=== PATIENT | female | born 1930 | race Hispanic/Latino ===

== ENCOUNTER 2017-11-23 20:40 | Inpatient (IN) | payer OTHER ==
[~2017-11-23] VITALS: Ht 152.4 cm; Wt 58.5 kg
--- NOTE | 2017-11-23 21:17 | ED GI/GU/ABDOMINAL COMPLAINT ---
History of Present Illness General Chief Complaint: General Adult Stated Complaint: " LT SIDE ABD PAIN AND CHEST PAIN, HX CANCER" Source: patient, family Exam Limitations: no limitations Vital Signs & Intake/Output Vital Signs & Intake/Output Vital Signs Date Time Temp Pulse Resp B/P B/P Pulse O2 O2 Flow FiO2 Mean Ox Delivery Rate 11/24 148 98.6 82 17 133/64 97 Room Air 11/24 0149 98.6 82 17 133/64 97 11/24 0101 98.9 86 16 137/62 97 Room Air 11/23 2301 98.5 87 16 172/71 98 Room Air 11/23 2112 Room Air 11/23 2110 99.0 97 18 172/74 100 Room Air ED Intake and Output 11/24 0000 11/23 1200 Intake Total 0 Output Total Balance 0 Intake, Oral 0 Patient 120 lb Weight Weight Reported by Patient Measurement Method Allergies Coded Allergies: No Known Allergies (11/23/17) Reconcile Medications Letrozole (Femara) 2.5 MG TABLET 1 TAB PO DAILY CHEMO (Reported) Ondansetron HCl 8 MG TABLET 2 TAB PO DAILY PRN N/V (Reported) Ribociclib Succinate/Letrozole (Kisqali Femara 600 MG Co-Pack) 600 MG/DAY (200 MG X 3)-2.5 MG TABLET 3 TAB PO DAILY CHEMO (Reported) Triage Note: pt to ed with family for L sided abd pain and constipation. 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 famiyl reports pt vomited 3 times within past 5 hours. 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 bowel sounds wnl, bd distended/soft. pt awake/alert, primarily english speaking. Triage Nurses Notes Reviewed? yes ? N Is pt currently ? No Onset: Gradual Duration: hour(s): Timing: multiple episodes today Quality/Severity: severe, stabbing Location: left lower quadrant HPI: 87YO female with hx of breast CA mets to lungs and liver on chemo presents to ED complaining of LLQ abdominal pain beginning this morning. Abdominal pain is intermittent, sharp, stabbing, 5/10 currently however 7/10 earlier today. Patient had three episodes of vomiting today, she is taking zofran without relief. Patient also complaining of constipation. LBM was three days ago. Family reports that the patient has had pain in the same location several times relating to her cancer diagnosis. They encouraged the patient to be seen today because the pain seemed more severe. The patient saw her oncologist at [place] on 11/06, family state that the patient's pain has been ongoing however she has not brought it up with her specialist. (Ioana Lopez) Past History Travel History Traveled to [place] past 21 day No Medical History Any Pertinent Medical History? see below for history Cancer(s): breast cancer, mets to lungs/liver Surgical History Surgical History: non-contributory Psychosocial History What is your primary language Georgian Tobacco Use: Never used Family History Hx Contributory? No (Ioana Lopez) Review of Systems Review of Systems Constitutional: Reports: no symptoms. EENTM: Reports: no symptoms. Respiratory: Reports: no symptoms. Cardiovascular: Reports: see HPI. GI: Reports: see HPI. Genitourinary: Reports: no symptoms. Musculoskeletal: Reports: no symptoms. Skin: Reports: no symptoms. Neurological/Psychological: Reports: no symptoms. Hematologic/Endocrine: Reports: no symptoms. Immunologic/Allergic: Reports: no symptoms. All Other Systems: Reviewed and Negative (Ioana Lopez) Physical Exam Physical Exam General Appearance: well developed/nourished, no apparent distress, alert, awake Head: atraumatic, normal appearance Eyes: Bilateral: normal appearance. Ears, Nose, Throat, Mouth: hearing grossly normal Neck: normal inspection, supple, full range of motion Respiratory: normal breath sounds, no respiratory distress, lungs clear Cardiovascular: regular rate/rhythm Gastrointestinal: normal bowel sounds, soft, LLQ tenderness without gaurding Back: normal inspection, normal range of motion Extremities: normal range of motion Neurologic/Psych: awake, alert, oriented x 3 Skin: intact, normal color, warm/dry Core Measures ACS in differential dx? Yes Sepsis Present: No Sepsis Focused Exam Completed? No (Ioana Lopez) Progress Differential Diagnosis: bowel obstruction, colon cancer, diverticulitis, gastritis, hernia, UTI/pyelo, electrolyte abnormality Plan of Care: Orders Procedure Date/time Status Regular Diet 11/25 B Active Nothing by Mouth 11/24 B Active HEPATIC FUNCTION PANEL 11/24 599 Active CBC WITHOUT DIFFERENTIAL 11/24 599 Active BASIC ELECTROLYTES PLUS BUN&CR 11/24 599 Active Weight 11/24 0205 Active Vital Signs 11/24 0205 Active Teach/Educate 11/24 204 Active Pain Treatment and Response 11/24 204 Active Nutritional Intake, Monitor 11/24 020 Active Isolation 11/24 0205 Active Intake & Output 11/24 0205 Active Patient Care Conference 11/24 0205 Active Activity/Ambulation 11/24 0205 Active Pathway - chart 11/24 0020 Active Pathway - chart 11/24 0001 Active House Staff 11/24 0001 Active Patient Data 11/24 0001 Active Code Status 11/24 0001 Active VTE Mechanical Prophylaxis 11/24 UNK Active Vital Signs 11/24 UNK Active Intake & Output 11/24 UNK Active Activity/Ambulation 11/24 UNK Active NUTRITIONAL CONSULT 11/24 UNK Active Patient Data 11/23 2356 Active Lab Add-on Test 11/23 2355 Active Saline Lock 11/23 2353 Active Misc Message 11/23 2353 Active ED Holding Orders 11/23 2353 Active Admit to inpatient 11/23 2353 Active Vital Signs 11/23 2353 Complete Code Status 11/23 2353 Complete TROPONIN LEVEL 11/23 2352 Complete EKG 11/23 2352 Active URINE OSMOLALITY 11/23 2138 Complete URINE LYTES, SPOT 11/23 2138 Complete SERUM OSMOLALITY 11/23 2122 Complete URINALYSIS 11/23 2104 Complete TROPONIN LEVEL 11/23 2104 Complete PARTIAL THROMBOPLASTIN TIME 11/23 2104 Complete PROTHROMBIN TIME 11/23 210 Complete COMPREHENSIVE METABOLIC PANEL 11/23 210 Complete CBC WITHOUT DIFFERENTIAL 11/23 210 Complete EKG 11/23 2043 Active Current Medications Sig/Castro Start time Last Medication Dose Stop Time Status Admin Letrozole 2.5 MG DAILY 11/24 899 AC (Femara 2.5MG) Polyethylene Glycol 17 GM DAILY 11/24 09 AC (Miralax) Heparin Sodium 5,000 UNIT Q8 11/24 06 AC (Porcine) Ondansetron HCl 4 MG Q6P PRN 11/24 0130 AC (Zofran) Acetaminophen 650 MG Q6P PRN 11/24 0030 AC (Tylenol) Acetaminophen 1,000 MG Q6P PRN 11/24 0030 AC (Ofirmev) Senna/Docusate Sodium 2 TAB DAILY PRN 11/24 0030 AC (Senokot S) Laboratory Tests 11/24/17 0025: Troponin I < 0.01 11/23/172137: Urine Color YEL, Urine Clarity CLEAR, Urine pH 6.5, Ur Specific [place] <= 1.005 , Urine Protein NEG, Urine Ketones NEG, Urine Nitrite NEG, Urine Bilirubin NEG, Urine Urobilinogen 0.2, Ur Leukocyte Esterase SMALL H, Ur Microscopic SEDIMENT EXAMINED, Urine RBC RARE, Urine WBC RARE, Ur Epithelial Cells RARE, Urine Bacteria RARE H, Urine Hemoglobin TRACE-INTACT, Urine Glucose NEG 11/23/172137: Urine Osmolality 130 L, Ur Random Creatinine 14.1, Ur Random Sodium 26 L, Ur Random Potassium 8.8, Fraction Sodium Excret 1.4 H 11/23/172121: Anion Gap 11, Estimated GFR 53 L, BUN/Creatinine Ratio 20.0, Glucose 177 H, Serum Osmolality 292, Calcium 8.8, Total Bilirubin 0.7, AST 85 H, ALT 65 H, Alkaline Phosphatase 372 H, Troponin I < 0.01, Total Protein 6.8, Albumin 3.7, Globulin 3.1, Albumin/Globulin Ratio 1.2, PT 10.7, INR 0.98, APTT 29, CBC w Diff NO MAN DIFF REQ, RBC 2.90 L, MCV 92.8, MCH 31.3 H, MCHC 33.8, RDW 17.9 H, MPV 10.2, Gran % 82.6 H, Lymphocytes % 13.8 L, Monocytes % 2.5, Eosinophils % 0.9, Basophils % 0.2, Absolute Granulocytes 3.7, Absolute Lymphocytes 0.6 L, Absolute Monocytes 0.1, Absolute Eosinophils 0, Absolute Basophils 0 Nodules detected on CXR however patient currently has metastatic lung CA, likely correlated. Labs show hyponatremia. Will obtain repeat troponin, EKG and admit to general medicine given hyponatremia in setting of weakness and metastatic CA. Dr. Ibanez present to see and evaluate the patient and he agrees with the plan of care. Diagnostic Imaging: Viewed by Me: Radiology Read. Discussed w/RAD: Radiology Read. Radiology Impression: PATIENT: SOLITARIO CASTRO PRESENT AGE : 87 PATIENT ACCOUNT NO: [id number] : 31 LOCATION: [facility] ORDERING PHYSICIAN: Ioana AUSTIN SERVICE DATE: 11/23/17 EXAM TYPE: CAT - CT ABD & PELVIS W IV CONTRAST EXAMINATION: CT ABDOMEN AND PELVIS WITH CONTRAST CLINICAL INFORMATION: History of metastatic cancer to the liver. Left lower quadrant abdominal pain. COMPARISON: None TECHNIQUE: Multidetector volumetric imaging was performed of the abdomen and pelvis following IV administration of 95 mL of Optiray 320 intravenous contrast. Sagittal and coronal reformatted images were obtained on the technologist's workstation. DLP: 264.6 mGy-cm FINDINGS: LUNG BASES: There is a 5 mm nodular opacity above the left diaphragm at the left lung base. There are several 2 to 3 mm faint nodular opacities in the right lower lobe seen on the first image. CT of chest would be helpful for further assessment. There is no infiltrate or pleural effusion. There is a tiny calcified granuloma at the right costophrenic angle axial image 8 (4). The posterior right costophrenic angle axial image 99 (3). LIVER, GALLBLADDER, AND BILIARY TREE: There are ill-defined multiple hypodense masses throughout the liver consistent with the history of metastatic disease. There is no intrahepatic bile duct dilatation. The gallbladder is unremarkable with no evidence of radiopaque gallstones, gallbladder wall thickening, or obvious pericholecystic inflammatory changes. PANCREAS: There is fatty atrophy of the pancreas. No inflammation or pancreatic mass. There is no pancreatic duct dilatation. SPLEEN: Unremarkable. ADRENAL GLANDS: Unremarkable. KIDNEYS AND URETERS: The kidneys are normal in size, shape, and attenuation. No hydronephrosis, hydroureter, or calculi seen. No perinephric stranding. BLADDER: Unremarkable. GASTROINTESTINAL TRACT: There is diffuse diverticula throughout the colon. There are numerous diverticula of the sigmoid colon. There is no acute change of the bowel. There is no diverticulitis. No bowel wall thickening or edema. No inflammation of the pericolonic fat. Moderate amount of stool throughout the colon. The appendix is normal. The small bowel loops are normal. ABDOMINAL WALL: No significant hernia is appreciated. Calcified injection granulomas in the subcutaneous fat of the left. LYMPH NODES: Normal. VASCULAR: Unremarkable. PELVIC VISCERA: Unremarkable. OSSEOUS STRUCTURES: Multilevel degenerative spondylosis spine with disc height narrowing and endplate spurring of the vertebrae. IMPRESSION: 1. Marked diverticulosis of colon but no diverticulitis. No acute change of the bowel. 2. Multiple hypodense masses of liver consistent with metastatic disease. 3. Several small nodules in the lower lobes of lungs. A CT chest would be helpful for further assessment. DICTATED BY: Melchor Flannery MD DATE/TIME DICTATED:11/23/172306 DRILLER MACHINE:SARKIS DATE/TIME TRANSCRIBED:11/23/172306 CONFIDENTIAL, DO NOT COPY WITHOUT APPROPRIATE AUTHORIZATION. <Electronically signed in Other Vendor System> SIGNED BY: Melchor Flannery MD 11/23/172319 CXR Impression: PATIENT: SOLITARIO CASTRO PRESENT AGE: 87 PATIENT ACCOUNT NO: [id number] : 31 LOCATION: [facility] ORDERING PHYSICIAN: Ioana AUSTIN SERVICE DATE: 11/23/17 EXAM TYPE: RAD - XRY-CHEST XRAY, TWO VIEWS EXAMINATION: XR CHEST CLINICAL INFORMATION: Chest pain COMPARISON: None TECHNIQUE: 2 views of the chest were obtained. FINDINGS: There is a vague opacity in the left midlung measuring about 2 cm projecting over the posterior left fifth rib suspicious for a lesion. There is an approximate 5 mm subtle nodular opacity over the left mid lower lung over the anterior left fifth rib. CT of chest with contrast would be suggested for further assessment. There is mild coarse increased interstitial lung markings which may be acute or chronic but there is no significant central pulmonary vascular congestion. There is no pleural effusion. The heart size is normal. The cardiac and the mediastinal contours are normal. There is multilevel degenerative spondylosis of dorsal spine. There are surgical clips in the right axilla. IMPRESSION: 1. No acute abnormality of chest. 2. 2 vague nodular opacities in the left lung. CT of chest with contrast recommended for follow-up. 3. Mild coarse increased interstitial lung markings which could be acute, interstitial edema versus chronic interstitial changes of lung. Short-term follow-up chest x-ray will be helpful. This will also be further assessed on the CT of the chest. DICTATED BY: Melchor Flannery MD DATE/TIME DICTATED:11/23/172301 DRILLER MACHINE:SARKIS DATE/TIME TRANSCRIBED:11/23/172301 CONFIDENTIAL, DO NOT COPY WITHOUT APPROPRIATE AUTHORIZATION. <Electronically signed in Other Vendor System> SIGNED BY: Melchor Flannery MD 11/23/17 231 Initial ED EKG: sinus rhythm @97bpm, nonspecific ST changes (Merly AUSTIN,Ioana Blandon) Departure Departure Disposition: STILL A PATIENT Condition: Stable Clinical Impression Primary Impression: Hyponatremia Secondary Impressions: Abdominal pain Qualifiers: Abdominal location: left lower quadrant Qualified Code: R10.32 - Left lower quadrant pain Chest pain Qualifiers: Chest pain type: unspecified Qualified Code: R07.9 - Chest pain, unspecified Referrals: Papito Kaye APRN (PCP/Family) Departure Forms: Customer Survey General Discharge Information Admission Note Spoke With: Denis Kaye MD Documentation of Exam: Documentation of any treatments & extenuating circumstances including Concerns Regarding Discharge (functional status, medication knowledge or non-compliance, living conditions, etc.) that warrant an admission rather than observation: [ Hyponatremia with associated weakness requiring electrolyte replacement, repeat labs, IV pain control for abdominal pain, premature discharge medically unsafe] (Merly AUSTIN,Ioana Blandon) PA/JAVA GROOVY DEVELOPER Co-Sign Statement Statement: ED Attending supervision documentation- [x] I saw and evaluated the patient. I have also reviewed all the pertinent lab results and diagnostic results. I agree with the findings and the plan of care as documented in the PA's/JAVA GROOVY DEVELOPER's documentation. [] I have reviewed the ED Record and agree with the PA's/JAVA GROOVY DEVELOPER's documentation. [] Additions or exceptions (if any) to the PAs/JAVA GROOVY DEVELOPER's note and plan are summarized below: [] (Shamar DREW,Raul Plasencia)
[2017-11-23 21:36] LABS: ABSOLUTE BASOPHIL COUNT 0 /CUMM (0.0-0.2); ABSOLUTE EOSINOPHIL COUNT 0 /CUMM (0.0-0.7); ABSOLUTE GRANULOCYTE CT 3.7 /CUMM (1.4-6.5); ABSOLUTE LYMPH COUNT 0.6 /CUMM (1.2-3.4); ABSOLUTE MONOCYTE COUNT 0.1 /CUMM (0.10-0.60); BASOPHIL % 0.2 % (0.0-2.0); EOSINOPHIL % 0.9 % (0-5); GRANULOCYTE % 82.6 % (42.2-75.2); HEMATOCRIT 26.9 % (37-47); MEAN CORPUSCULAR HGB 31.3 PG (27.0-31.0); MEAN CORPUSCULAR HGB CONC 33.8 G/DL (33.0-37.0); MEAN CORPUSCULAR VOLUME 92.8 FL (81.0-99.0); MEAN PLATELET VOLUME 10.2 FL (7.4-10.4); PLATELET COUNT 246 /CUMM (130-400); RBC DISTRIBUTION WIDTH 17.9 % (11.5-14.5); WHITE BLOOD CELL COUNT 4.4 /CUMM (4.8-10.8)
[2017-11-23] MEDS ORDERED: KISQALI FEMARA1 EAC2 PO (21:39)
[2017-11-23] MEDS ORDERED: ONDANSETRON HCL8 MG PO (21:40)
[2017-11-23] MEDS ORDERED: FEMARA2.5 M1 PO (21:41)
[2017-11-23 21:47] LABS: PT 10.7 SEC (9.4-12.5); PTT 29 SEC (25-37)
--- NOTE | 2017-11-23 23:10 | RADIOLOGY REPORT ---
EXAMINATION: XR CHEST CLINICAL INFORMATION: Chest pain COMPARISON: None TECHNIQUE: 2 views of the chest were obtained. FINDINGS: There is a vague opacity in the left midlung measuring about 2 cm projecting over the posterior left fifth rib suspicious for a lesion. There is an approximate 5 mm subtle nodular opacity over the left mid lower lung over the anterior left fifth rib. CT of chest with contrast would be suggested for further assessment. There is mild coarse increased interstitial lung markings which may be acute or chronic but there is no significant central pulmonary vascular congestion. There is no pleural effusion. The heart size is normal. The cardiac and the mediastinal contours are normal. There is multilevel degenerative spondylosis of dorsal spine. There are surgical clips in the right axilla. IMPRESSION: 1. No acute abnormality of chest. 2. 2 vague nodular opacities in the left lung. CT of chest with contrast recommended for follow-up. 3. Mild coarse increased interstitial lung markings which could be acute, interstitial edema versus chronic interstitial changes of lung. Short-term follow-up chest x-ray will be helpful. This will also be further assessed on the CT of the chest.
--- NOTE | 2017-11-23 23:20 | CT SCAN REPORT ---
EXAMINATION: CT ABDOMEN AND PELVIS WITH CONTRAST CLINICAL INFORMATION: History of metastatic cancer to the liver. Left lower quadrant abdominal pain. COMPARISON: None TECHNIQUE: Multidetector volumetric imaging was performed of the abdomen and pelvis following IV administration of 95 mL of Optiray 320 intravenous contrast. Sagittal and coronal reformatted images were obtained on the technologist's workstation. DLP: 264.6 mGy-cm FINDINGS: LUNG BASES: There is a 5 mm nodular opacity above the left diaphragm at the left lung base. There are several 2 to 3 mm faint nodular opacities in the right lower lobe seen on the first image. CT of chest would be helpful for further assessment. There is no infiltrate or pleural effusion. There is a tiny calcified granuloma at the right costophrenic angle axial image 8 (4). The posterior right costophrenic angle axial image 99 (3). LIVER, GALLBLADDER, AND BILIARY TREE: There are ill-defined multiple hypodense masses throughout the liver consistent with the history of metastatic disease. There is no intrahepatic bile duct dilatation. The gallbladder is unremarkable with no evidence of radiopaque gallstones, gallbladder wall thickening, or obvious pericholecystic inflammatory changes. PANCREAS: There is fatty atrophy of the pancreas. No inflammation or pancreatic mass. There is no pancreatic duct dilatation. SPLEEN: Unremarkable. ADRENAL GLANDS: Unremarkable. KIDNEYS AND URETERS: The kidneys are normal in size, shape, and attenuation. No hydronephrosis, hydroureter, or calculi seen. No perinephric stranding. BLADDER: Unremarkable. GASTROINTESTINAL TRACT: There is diffuse diverticula throughout the colon. There are numerous diverticula of the sigmoid colon. There is no acute change of the bowel. There is no diverticulitis. No bowel wall thickening or edema. No inflammation of the pericolonic fat. Moderate amount of stool throughout the colon. The appendix is normal. The small bowel loops are normal. ABDOMINAL WALL: No significant hernia is appreciated. Calcified injection granulomas in the subcutaneous fat of the left. LYMPH NODES: Normal. VASCULAR: Unremarkable. PELVIC VISCERA: Unremarkable. OSSEOUS STRUCTURES: Multilevel degenerative spondylosis spine with disc height narrowing and endplate spurring of the vertebrae. IMPRESSION: 1. Marked diverticulosis of colon but no diverticulitis. No acute change of the bowel. 2. Multiple hypodense masses of liver consistent with metastatic disease. 3. Several small nodules in the lower lobes of lungs. A CT chest would be helpful for further assessment.
--- NOTE | 2017-11-23 23:59 | History & Physical ---
Jennifer DREW,Justine 11/23/17 0638: General Information and HPI MD Statement: I have seen and personally examined SOLITARIO CASTRO and documented this H&P. The patient is a 87 year old F who presented with a patient stated chief complaint of []. 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 She was recently started 2 weeks ago on Pablociclib 600mg and letrozole 2.5mg after which she started experiencing increased fatigue, tiredness, nausea. Her oral intake decreased ( including hydration). She started experiencing abdominal pain along with several episodes of nausea today despite on MiraLAX without any relief. She has subsequent about the ER for further evaluation. At baseline - she is very active, independent and takes care of her self, cooks. No other past medical history. Allergies/Medications Allergies: Coded Allergies: No Known Allergies (11/23/17) Compliance With Home Meds: GOOD Past History Travel History Traveled to [place] past 21 day No Medical History Cancer(s): breast cancer, mets to lungs/liver Surgical History Surgical History: non-contributory Past Family/Social History Family History Relations & Conditions if any Relation not specified for: *No pertinent family history Psychosocial History Where do you live? Home Who Do You Live With? child Services at Home: None Primary Language: Croatian ETOH Use: denies use Illicit Drug Use: denies illicit drug use Functional Ability ADLs Independent: dressing, eating, toileting, bathing. Ambulation: independent IADLs Needs Assist: shopping, housework, finances, food prep, telephone, transportation, medication admin. Review of Systems Review of Systems Constitutional: Reports: see HPI. Exam & Diagnostic Data Last 24 Hrs of Vital Signs/I&O Vital Signs Date Time Temp Pulse Resp B/P B/P Pulse O2 O2 Flow FiO2 Mean Ox Delivery Rate 11/23 2301 98.5 87 16 172/71 98 Room Air 11/24 2111 Room Air 11/23 2110 99.0 97 18 172/74 100 Room Air Physical Exam General Appearance Alert, Oriented X3, Cooperative Skin No Rashes, No Breakdown, Hyperpigmentation right leg Skin Temp/Moisture Exam: Warm/Dry HEENT Atraumatic, PERRLA, EOMI Neck Supple, No JVD Cardiovascular Regular Rate, Normal S1, Normal S2, No Murmurs Lungs Clear to Auscultation, Normal Air Movement Abdomen Normal Bowel Sounds, Soft, No Tenderness, tenderness in the left upper quadrant Neurological Normal Speech, Strength at 5/5 X4 Ext, Normal Tone Extremities No Clubbing, No Cyanosis, 2+ pitting edema Vascular Normal Pulses Last 24 Hrs of Labs/Anibal: Laboratory Tests 11/24/17 0025: Troponin I Pending 11/23/172137: Urine Color YEL, Urine Clarity CLEAR, Urine pH 6.5, Ur Specific Wayne <= 1.005 , Urine Protein NEG, Urine Ketones NEG, Urine Nitrite NEG, Urine Bilirubin NEG, Urine Urobilinogen 0.2, Ur Leukocyte Esterase SMALL H, Ur Microscopic SEDIMENT EXAMINED, Urine RBC RARE, Urine WBC RARE, Ur Epithelial Cells RARE, Urine Bacteria RARE H, Urine Hemoglobin TRACE-INTACT, Urine Glucose NEG 11/23/172137: Urine Osmolality Pending, Ur Random Creatinine 14.1, Ur Random Sodium 26 L, Ur Random Potassium 8.8, Fraction Sodium Excret 1.4 H 11/23/172121: Anion Gap 11, Estimated GFR 53 L, BUN/Creatinine Ratio 20.0, Glucose 177 H, Serum Osmolality Pending, Calcium 8.8, Total Bilirubin 0.7, AST 85 H, ALT 65 H , Alkaline Phosphatase 372 H, Troponin I < 0.01, Total Protein 6.8, Albumin 3.7 , Globulin 3.1, Albumin/Globulin Ratio 1.2, PT 10.7, INR 0.98, APTT 29, CBC w Diff NO MAN DIFF REQ, RBC 2.90 L, MCV 92.8, MCH 31.3 H, MCHC 33.8, RDW 17.9 H , MPV 10.2, Gran % 82.6 H, Lymphocytes % 13.8 L, Monocytes % 2.5, Eosinophils % 0.9, Basophils % 0.2, Absolute Granulocytes 3.7, Absolute Lymphocytes 0.6 L, Absolute Monocytes 0.1, Absolute Eosinophils 0, Absolute Basophils 0 Assessment/Plan Assessment: Patient is 87-year-old female with metastatic breast cancer recently started on Pablociclib/letrozole 2 weeks prior to admission presented to [place] with left sided abdominal pain, nausea, vomiting. Patients symptoms started after starting the new medication, declines any fever/abx intate/diarrhea. VS at admission were stable. Labs did show white count 4.4, H&H 9.1/26.9, platelet count 246. Chemistry panel sodium 128, BUN 20, AST/ALT 85/65, ALP 372, troponin less than 0.01. Urinalysis did show small leukocyte esterase and rare bacteria. Serum osmole 292, urine osmolarity 130. Urine random sodium 26. Differential Possible chemotherapy related adverse effect. Ruled out colitis with CT abdomen. No diarrhea/fevers. Granulocytosis present, I am not worried about neutropenia. We will provide supportive care. Hyponatremia - likely secondary to decreased intake rather than SIADH. Plan Admit to general medicine floor Left sided abdominal pain - likely secondary to constipation * CT abdomen did show mild stool throughtout the colon * rule out C.diff * Aggressive bowel regimen with miralax, Senna S, dulcolax suppository * Consider enema tomorrow if the above didnot relief her constipation * Antiemtics - Zofran as needed * Check EKG for QTc * serial abdominal exams Hyponatremia Na 128, Serum osm - 292 , urine osm - 130, urine Na 26 * Atypical SIADH, if >100mOsm is taken as working ADH. * Na improving without any intervention * Consider fluid restriction and watch for improvement. Metastatic breast cancer Hold pablociclib * contineu letrazole if able to tolerate BMI - 20 * Nutritional consult DVT prophylaxis SC heparin Code status Full code As Ranked By This Provider Problem List: 1. Abdominal pain Qualifiers Abdominal location: left lower quadrant Qualified Code: R10.32 - Left lower quadrant pain 2. Hyponatremia Core Measures/Misc (11/26) Acute Coronary Syndrome ACS Diagnosis: No Congestive Heart Failure Congestive Heart Failure Diagnosis No Cerebrovascular Accident CVA/TIA Diagnosis: No VTE (View Protocol) VTE Risk Factors Acute Medical Illness No Mechanical VTE Prophylaxis d/t N/A MechProphylax Ordered No VTE Pharm Prophylaxis d/t NA PharmProphylax ordered Sepsis (View protocol) Sepsis Present: No If YES complete Sepsis Event Note If YES complete Sepsis Event Note Resident Review Statement Resident Statement: examined this patient, discussed with media intern, agreed with media intern, discussed with family, reviewed EMR data (avail), discussed with nursing , discussed with case mgmt, reviewed images, amended to note Other Findings: as above Denis Kaye MD 11/24/17 0449: General Information and HPI Statement: I have seen and personally examined SOLITARIO CASTRO and documented this H&P. The patient is a 87 year old F who presented with a patient stated chief complaint of []. Source of Information: family Allergies/Medications Home Med list Letrozole (Femara) 2.5 MG TABLET 1 TAB PO DAILY CHEMO (Reported) Ondansetron HCl 8 MG TABLET 2 TAB PO DAILY PRN N/V (Reported) Ribociclib Succinate/Letrozole (Kisqali Femara 600 MG Co-Pack) 600 MG/DAY (200 MG X 3)-2.5 MG TABLET 3 TAB PO DAILY CHEMO (Reported) Past History Medical History Cancer(s): breast cancer Past Family/Social History Psychosocial History Where do you live? Home Who Do You Live With? child Primary Language: Croatian ETOH Use: denies use Review of Systems Review of Systems Constitutional: Reports: see HPI. Exam & Diagnostic Data Last 24 Hrs of Vital Signs/I&O Vital Signs Date Time Temp Pulse Resp B/P B/P Pulse O2 O2 Flow FiO2 Mean Ox Delivery Rate 11/24 148 98.6 82 17 133/64 97 Room Air 11/24 0149 98.6 82 17 133/64 97 11/24 0101 98.9 86 16 137/62 97 Room Air 11/23 2301 98.5 87 16 172/71 98 Room Air 11/23 2112 Room Air 11/23 211 99.0 97 18 172/74 100 Room Air Intake & Output 11/24 0800 11/24 0000 11/23 1600 Intake Total 0 Output Total Balance 0 Intake, Oral 0 Patient 129 lb 120 lb Weight Weight Bed scale Reported by Patient Measurement Method Physical Exam General Appearance Alert, Oriented X3, Cooperative Skin No Rashes, No Breakdown, Hyperpigmentation right leg Skin Temp/Moisture Exam: Warm/Dry Sepsis Skin Exam (color): Normal for Ethnicity HEENT Atraumatic, PERRLA, EOMI Neck Supple, No JVD Cardiovascular Regular Rate, Normal S1, Normal S2, No Murmurs Lungs Clear to Auscultation, Normal Air Movement Abdomen Normal Bowel Sounds, Soft, No Tenderness, tenderness in the left upper quadrant Extremities No Clubbing, No Cyanosis, 2+ pitting edema Vascular Normal Pulses Last 24 Hrs of Labs/Anibal: Laboratory Tests 11/24/17 0025: Troponin I < 0.01, TSH Pending, Free T4 Pending 11/23/172137: Urine Color YEL, Urine Clarity CLEAR, Urine pH 6.5, Ur Specific Wayne <= 1.005 , Urine Protein NEG, Urine Ketones NEG, Urine Nitrite NEG, Urine Bilirubin NEG, Urine Urobilinogen 0.2, Ur Leukocyte Esterase SMALL H, Ur Microscopic SEDIMENT EXAMINED, Urine RBC RARE, Urine WBC RARE, Ur Epithelial Cells RARE, Urine Bacteria RARE H, Urine Hemoglobin TRACE-INTACT, Urine Glucose NEG 11/23/172137: Urine Osmolality 130 L, Ur Random Creatinine 14.1, Ur Random Sodium 26 L, Ur Random Potassium 8.8, Fraction Sodium Excret 1.4 H 11/23/172121: Anion Gap 11, Estimated GFR 53 L, BUN/Creatinine Ratio 20.0, Glucose 177 H, Serum Osmolality 292, Calcium 8.8, Total Bilirubin 0.7, AST 85 H, ALT 65 H, Alkaline Phosphatase 372 H, Troponin I < 0.01, Total Protein 6.8, Albumin 3.7, Globulin 3.1, Albumin/Globulin Ratio 1.2, PT 10.7, INR 0.98, APTT 29, CBC w Diff NO MAN DIFF REQ, RBC 2.90 L, MCV 92.8, MCH 31.3 H, MCHC 33.8, RDW 17.9 H, MPV 10.2, Gran % 82.6 H, Lymphocytes % 13.8 L, Monocytes % 2.5, Eosinophils % 0.9, Basophils % 0.2, Absolute Granulocytes 3.7, Absolute Lymphocytes 0.6 L, Absolute Monocytes 0.1, Absolute Eosinophils 0, Absolute Basophils 0 Core Measures/Misc (11/26) Sepsis (View protocol) If YES complete Sepsis Event Note If YES complete Sepsis Event Note Attending MD Review Statement Attending Statement Attending MD Statement: examined this patient, discuss w/resident/PA/SPECIALTY THERAPIST, agreed w/resident/PA/SPECIALTY THERAPIST, discussed with case mgmt Attending Assessment/Plan: This patient is an 87-year-old white female with a 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 Two weeks ago she was started on Pablociclib 600mg and letrozole 2.5mg after which she started experiencing increased fatigue, tiredness, nausea. Her oral intake decreased (including hydration). She started experiencing abdominal pain along with several episodes of nausea today despite on MiraLAX without any relief. While in the emergency department the patient was found to be afebrile with stable vital signs, white blood cell count and hemoglobin are slightly low, hyponatremic at 128, mild elevation of AST and ALT (85, 65), elevation of alkaline phosphatase at 372, troponins negative 2, CT scan 1. Marked diverticulosis of colon but no diverticulitis. No acute change of the bowel.2. Multiple hypodense masses of liver consistent with metastatic disease.3. Several small nodules in the lower lobes of lungs., Chest x-ray 1. No acute abnormality of chest. 2. 2 vague nodular opacities in the left lung. CT of chest with contrast recommended for follow-up. 3. Mild coarse increased interstitial lung markings which could be acute, interstitial edema versus chronic interstitial changes of lung.. The patient is being admitted to general medicine service for hyponatremia, dehydration, left-sided abdominal pain and colitis. Determine etiology of hyponatremia, aggressive bowel regimen, antiemetics and serial abdominal exams. Well likely need oncology input her to discontinuing PABLOCICILIP. Full code
[2017-11-24 01:49] VITALS: BP 133/64
--- NOTE | 2017-11-24 02:35 | PN- Housestaff ---
See Addendum Subjective Follow-up For: Left sided abdominal pain from constipation Hyponatremia Metastatic breast cancer Subjective: Patient is lying in the bed, not very active. Not eating well. She still have left sided pain however had a bowel movement. Review of Systems Constitutional: Reports: see HPI. Objective Last 24 Hrs of Vital Signs/I&O Vital Signs Date Time Temp Pulse Resp B/P B/P Pulse O2 O2 Flow FiO2 Mean Ox Delivery Rate 11/24 0149 98.6 82 17 133/64 97 11/24 0101 98.9 86 16 137/62 97 Room Air 11/23 2301 98.5 87 16 172/71 98 Room Air 11/23 2112 Room Air 11/23 2110 99.0 97 18 172/74 100 Room Air Intake & Output 11/24 0800 11/24 0000 11/23 1600 Intake Total 0 Output Total Balance 0 Intake, Oral 0 Patient 58.513 kg 54.431 kg Weight Weight Bed scale Reported by Patient Measurement Method Physical Exam General Appearance: Alert, Oriented X3, Cooperative, Mild Distress Skin: No Rashes, No Breakdown Skin Temp/Moisture Exam: Warm/Dry HEENT: Atraumatic, PERRLA, EOMI Neck: Supple, No JVD Cardiovascular: Normal S1, Normal S2, No Murmurs Lungs: Clear to Auscultation, Normal Air Movement Abdomen: Normal Bowel Sounds, Soft, No Tenderness Neurological: Normal Speech, Normal Tone Extremities: No Clubbing, No Cyanosis, No Edema Vascular: Normal Pulses Current Medications: Current Medications Sig/Castro Start time Last Medication Dose Route Stop Time Status Admin Acetaminophen 650 MG Q6P PRN 11/24 0030 AC PO Acetaminophen 1,000 MG Q6P PRN 11/24 0030 AC IV Bisacodyl 10 MG ONCE ONE 11/24 0030 DC 11/24 OK 11/24 0031 0106 Heparin Sodium 5,000 UNIT Q8 11/24 0600 AC 11/24 (Porcine) SC 0544 Letrozole 2.5 MG DAILY 11/24 899 AC PO Morphine Sulfate 0 .STK-MED ONE 11/23 2126 DC .ROUTE Morphine Sulfate 4 MG ONCE ONE 11/23 2114 DC 11/23 IV 11/23 Ondansetron HCl 4 MG Q6P PRN 11/24 0130 AC IV Ondansetron HCl 4 MG ONCE ONE 11/23 2129 DC 11/23 IV 11/23 Ondansetron HCl 0 .STK-MED ONE 11/23 2126 DC .ROUTE Polyethylene Glycol 17 GM DAILY 11/24 09 AC PO Senna/Docusate Sodium 2 TAB DAILY PRN 11/24 0030 AC PO Last 24 Hrs of Lab/Anibal Results Last 24 Hrs of Labs/Mics: Laboratory Tests 11/24/17 0640: Cortisol AM Sample Cancelled 11/24/17 0640: Anion Gap 8, Estimated GFR 53 L, BUN/Creatinine Ratio 17.0, Total Bilirubin 1.0 , Direct Bilirubin 0.2, AST 71 H, ALT 52, Alkaline Phosphatase 327 H, Total Protein 6.2 L, Albumin 3.2 L, Cortisol AM Sample 12.4, CBC w Diff NO MAN DIFF REQ, RBC 2.73 L, MCV 93.9, MCH 31.2 H, MCHC 33.2, RDW 18.4 H, MPV 10.5 H, Gran % 77.5 H, Lymphocytes % 17.8 L, Monocytes % 2.2, Eosinophils % 2.1, Basophils % 0.4, Absolute Granulocytes 2.7, Absolute Lymphocytes 0.6 L, Absolute Monocytes 0.1, Absolute Eosinophils 0.1, Absolute Basophils 0 11/24/175: Troponin I < 0.01, TSH 3.470, Free T4 1.94 H 11/23/172137: Urine Color YEL, Urine Clarity CLEAR, Urine pH 6.5, Ur Specific [place] <= 1.005 , Urine Protein NEG, Urine Ketones NEG, Urine Nitrite NEG, Urine Bilirubin NEG, Urine Urobilinogen 0.2, Ur Leukocyte Esterase SMALL H, Ur Microscopic SEDIMENT EXAMINED, Urine RBC RARE, Urine WBC RARE, Ur Epithelial Cells RARE, Urine Bacteria RARE H, Urine Hemoglobin TRACE-INTACT, Urine Glucose NEG 11/23/172137: Urine Osmolality 130 L, Ur Random Creatinine 14.1, Ur Random Sodium 26 L, Ur Random Potassium 8.8, Fraction Sodium Excret 1.4 H 11/23/172121: Anion Gap 11, Estimated GFR 53 L, BUN/Creatinine Ratio 20.0, Glucose 177 H, Serum Osmolality 292, Calcium 8.8, Total Bilirubin 0.7, AST 85 H, ALT 65 H, Alkaline Phosphatase 372 H, Troponin I < 0.01, Total Protein 6.8, Albumin 3.7, Globulin 3.1, Albumin/Globulin Ratio 1.2, Cortisol PM Sample 20.9 H, PT 10.7, INR 0.98, APTT 29, CBC w Diff NO MAN DIFF REQ, RBC 2.90 L, MCV 92.8, MCH 31.3 H, MCHC 33.8, RDW 17.9 H, MPV 10.2, Gran % 82.6 H, Lymphocytes % 13.8 L, Monocytes % 2.5, Eosinophils % 0.9, Basophils % 0.2, Absolute Granulocytes 3.7, Absolute Lymphocytes 0.6 L, Absolute Monocytes 0.1, Absolute Eosinophils 0, Absolute Basophils 0 Assessment/Plan Assessment: Patient is 87-year-old female with metastatic breast cancer recently started on Pablociclib/letrozole 2 weeks prior to admission presented to [place] with left sided abdominal pain, nausea, vomiting. Patients symptoms started after starting the new medication, declines any fever/abx intate/diarrhea. VS at admission were stable. Labs did show white count 4.4, H&H 9.1/26.9, platelet count 246. Chemistry panel sodium 128, BUN 20, AST/ALT 85/65, ALP 372, troponin less than 0.01. Urinalysis did show small leukocyte esterase and rare bacteria. Serum osmole 292, urine osmolarity 130. Urine random sodium 26. Plan Admit to general medicine floor Left sided abdominal pain - likely secondary to constipation * CT abdomen did show mild stool throughtout the colon * rule out C.diff * Aggressive bowel regimen with miralax, Senna S, dulcolax suppository * Consider enema tomorrow if the above didnot relief her constipation * Antiemtics - Zofran as needed * Check EKG for QTc * serial abdominal exams Hyponatremia Na 128, Serum osm - 292 , urine osm - 130, urine Na 26 * Atypical SIADH, if >100mOsm is taken as working ADH. * Na improving without any intervention * Consider fluid restriction and watch for improvement. * Would repeat serum osm, urine osm, urine lytes tomorrow. Metastatic breast cancer Hold pablociclib * contineu letrazole if able to tolerate BMI - 20 * Nutritional consult DVT prophylaxis SC heparin Code status Full code Problem List: 1. Hyponatremia 2. Abdominal pain Pain Ratin Pain Location: left sided abdomen Pain Goal: Pain 4 or less Pain Plan: tylenol prn Tomorrow's Labs & Rationales: cbc bep
[2017-11-24 06:00] VITALS: BP 132/68
[2017-11-24 08:22] LABS: ABSOLUTE BASOPHIL COUNT 0 /CUMM (0.0-0.2); ABSOLUTE EOSINOPHIL COUNT 0.1 /CUMM (0.0-0.7); ABSOLUTE GRANULOCYTE CT 2.7 /CUMM (1.4-6.5); ABSOLUTE LYMPH COUNT 0.6 /CUMM (1.2-3.4); ABSOLUTE MONOCYTE COUNT 0.1 /CUMM (0.10-0.60); BASOPHIL % 0.4 % (0.0-2.0); EOSINOPHIL % 2.1 % (0-5); GRANULOCYTE % 77.5 % (42.2-75.2); HEMATOCRIT 25.6 % (37-47); MEAN CORPUSCULAR HGB 31.2 PG (27.0-31.0); MEAN CORPUSCULAR HGB CONC 33.2 G/DL (33.0-37.0); MEAN CORPUSCULAR VOLUME 93.9 FL (81.0-99.0); MEAN PLATELET VOLUME 10.5 FL (7.4-10.4); PLATELET COUNT 227 /CUMM (130-400); RBC DISTRIBUTION WIDTH 18.4 % (11.5-14.5); RED BLOOD CELL CT 2.73 /CUMM (4.20-5.40); WHITE BLOOD CELL COUNT 3.5 /CUMM (4.8-10.8)
[2017-11-24 14:30] VITALS: BP 123/54
[2017-11-24 20:50] VITALS: BP 134/60
[2017-11-25 06:53] VITALS: BP 131/69
--- NOTE | 2017-11-25 08:34 | PN- Housestaff ---
Elen Constantino 11/25/17 0834: Subjective Follow-up For: Left sided abdominal pain from constipation Hyponatremia Metastatic breast cancer Subjective: Patient was seen and examined at bedside. She states she has been feeling much better. Denies fever, chills, abdominal pain. She did have a bowel movement yesterday. Review of Systems Constitutional: Reports: see HPI. Objective Last 24 Hrs of Vital Signs/I&O Vital Signs Date Time Temp Pulse Resp B/P B/P Pulse O2 O2 Flow FiO2 Mean Ox Delivery Rate 11/25 0653 98.3 84 17 131/69 99 11/24 2050 98.5 84 20 134/60 96 11/24 1430 98.4 85 18 123/54 98 Room Air Intake & Output 11/25 1600 11/25 0800 11/25 0000 Intake Total 60 Output Total Balance 60 Intake, Oral 60 Physical Exam General Appearance: Alert, Oriented X3, Cooperative, No Acute Distress Skin: No Rashes Neck: Supple Cardiovascular: Regular Rate, Normal S1, Normal S2 Lungs: Clear to Auscultation Abdomen: Normal Bowel Sounds, Soft, No Tenderness Extremities: No Edema, Normal Pulses Vascular: Normal Pulses Assessment/Plan Assessment: Patient is 87-year-old female with metastatic breast cancer recently started on Pablociclib/letrozole 2 weeks prior to admission is admitted to the [facility] with left sided abdominal pain, nausea, vomiting. The patient has no complaints today Left sided abdominal pain - likely secondary to constipation -CT abdomen showed mild stool throughtout the colon -Aggressive bowel regimen with miralax, Senna S, dulcolax suppository -Patient had a bowel movement yesterday -Antiemtics - Zofran as needed Hyponatremia Na 128, Serum osm - 292 , urine osm - 130, urine Na 26 Atypical SIADH, if >100mOsm is taken as working ADH. Na improving without any intervention Metastatic breast cancer -Hold pablociclib -contineu letrazole if able to tolerate The patient is likely to be discharged later in the day today DVT prophylaxis SC heparin Code status Full code Problem List: 1. Abdominal pain 2. Hyponatremia Pain Ratin Pain Location: abdomen Pain Goal: Remain pain free Pain Plan: pathway Tomorrow's Labs & Rationales: none Elizabeth DREW,Leonie 11/25/17 1020: Attending MD Review Statement Attending Statement Attending MD Statement: examined this patient, discuss w/resident/PA/SNOW BLOWER, agreed w/resident/PA/SNOW BLOWER, reviewed EMR data (avail), discussed with nursing, reviewed images Attending Assessment/Plan: It is primarily Hebrew-speaking. She is here with what appears to be dehydration and hyponatremia in the setting of metastatic breast CA. We think her symptomatology is from the new chemo she started. With hydration her sodium has come up beautifully and it is 135 today. She also was seen by physical therapy and I think she is stable to go home with outpatient follow-up.
[2017-11-25 09:21] LABS: ABSOLUTE BASOPHIL COUNT 0 /CUMM (0.0-0.2); ABSOLUTE EOSINOPHIL COUNT 0.2 /CUMM (0.0-0.7); ABSOLUTE GRANULOCYTE CT 2.1 /CUMM (1.4-6.5); ABSOLUTE LYMPH COUNT 0.7 /CUMM (1.2-3.4); ABSOLUTE MONOCYTE COUNT 0.1 /CUMM (0.10-0.60); BASOPHIL % 0.2 % (0.0-2.0); GRANULOCYTE % 68.2 % (42.2-75.2); MEAN CORPUSCULAR HGB 31.4 PG (27.0-31.0); MEAN CORPUSCULAR HGB CONC 33.1 G/DL (33.0-37.0); MEAN CORPUSCULAR VOLUME 94.6 FL (81.0-99.0); MEAN PLATELET VOLUME 10.3 FL (7.4-10.4); PLATELET COUNT 223 /CUMM (130-400); RBC DISTRIBUTION WIDTH 17.7 % (11.5-14.5); RED BLOOD CELL CT 2.75 /CUMM (4.20-5.40)
--- NOTE | 2017-11-25 10:43 | Patient Discharge Instructions ---
Discharge Instructions General Discharge Information You were seen/treated for: CONSTIPATION LOW SODIUM LEVELS Special Instructions: please follow up with your oncologist Dr. Ruth This sunday. Please inform oncologist about the admission and discontinuation of the medication Please follow up with your PCP in a week Please hydrate well Diet Continue normal diet: Yes Activity Full Activity/No Limits: Yes Activity Self Limited: Yes Acute Coronary Syndrome Inclusion Criteria At DC or during hospital stay patient has or had the following: ACS DIAGNOSIS No Discharge Core Measures Meds if any: Prescribed or Continued at Discharge Meds if any: NOT Prescribed or Continued at Discharge Congestive Heart Failure Inclusion Criteria At DC or during hospital stay patient has or had the following: CHF DIAGNOSIS No Discharge Core Measures Meds if any: Prescribed or Continued at Discharge Meds if any: NOT Prescribed or Continued at Discharge Cerebrovascular accident Inclusion Criteria At DC or during hospital stay patient has or had the following: CVA/TIA Diagnosis No Discharge Core Measures Meds if any: Prescribed or Continued at Discharge Meds if any: NOT Prescribed or Continued at Discharge Venous thromboembolism Inclusion Criteria VTE Diagnosis No VTE Type NONE VTE Confirmed by (Test) NONE Discharge Core Measures - Per Current guidelines, there needs to be overlap - treatment for the first 5 days of Warfarin therapy. - If discharged on Warfarin prior to 5 days of - overlap therapy, the patient will need to be - assessed for post discharge needs including - *Post discharge parental anticoagulation - *Warfarin and/or parental anticoagulation education - *Follow up date to check INR post discharge At least 5 days overlap therapy as Inpatient No Meds if any: Prescribed or Continued at Discharge Note: Overlap Therapy is Warfarin and Anticoagulant Meds if any: NOT Prescribed or Continued at Discharge
[2017-11-25] MEDS ORDERED: VITAMIN D31000 UNI2 PO (10:44)
[2017-11-25] MEDS ORDERED: GLUCERNA237 ML PO (10:45)
[2017-11-25] MEDS ORDERED: GLIPIZIDE-METF1 EAC2 PO (10:45)
[2017-11-25] MEDS ORDERED: LEVOTHYROXINE25 MCG PO (10:46)
[2017-11-25] MEDS ORDERED: COZAAR100 M1 PO (10:46)
[2017-11-25] MEDS ORDERED: SIMVASTATIN20 M2 PO (10:49)
[2017-11-25] MEDS ORDERED: VITAMIN B-650 M2 PO (10:50)
[2017-11-25] MEDS ORDERED: VITAMIN B-1250 MC1 PO (10:51)
[2017-11-25] MEDS ORDERED: COZAAR25 M1 PO (11:19)
--- NOTE | 2017-11-25 11:26 | Discharge Summary ---
Visit Information Visit Dates Admission Date: 11/23/17 Discharge Date: 11/25/17 Hospital Course Course Attending Physician: Denis Kaye MD Primary Care Physician: Papito Kaye APRN Hospital Course: Patient is 87-year-old female with metastatic breast cancer recently started on Pablociclib/letrozole 2 weeks prior to admission presented to [facility] with left sided abdominal pain, nausea, vomiting. Patients symptoms started after starting the new medication, declines any fever/abx intate/diarrhea. VS at admission were stable. Labs did show white count 4.4, H&H 9.1/26.9, platelet count 246. Chemistry panel sodium 128, BUN 20, AST/ALT 85/65, ALP 372, troponin less than 0.01. Urinalysis did show small leukocyte esterase and rare bacteria. Serum osmole 292, urine osmolarity 130. Urine random sodium 26. PMH: DM, HTN, HLD, hypothyroidism Plan Admit to general medicine floor Left sided abdominal pain - likely secondary to constipation Imaging with CT abdomen did show mild stool throughtout the colon. She had bowel movements after having bowel regimen. Pain was improved. It is most likely related to pablociclib/letrazole so we discontinued the medication. She was on pablociclib 75mg bid which was increased due to progression of her disease started on fumera. She needs follow up with her oncologist in the next 2 days especially as her medications were discontinued. Hyponatremia Na 128, Serum osm - 292 , urine osm - 130, urine Na 26. Likely dehydration, but it remains poor even during her hospitalization. It gradually improved without any intervention. She needs follow up of her Na levels and she appears euvolemic although no adequately taking fluids. Na on the day of discharge 135. Metastatic breast cancer Hold pablociclib and letrazole. Please follow up with as outpatinet DM: Hold hypoglycemics. Insulin sliding scale. HTN: continue losartan HLD: continue simvastatin Hypothyroidism: continue levothyroxine. BMI - 20: continue glucerna. DVT prophylaxis SC heparin Code status full code Complications: none Allergies: Coded Allergies: No Known Allergies (11/23/17) Significant Procedures: none Pertinent Lab Results: as above Disposition Summary Disposition Principal Diagnosis: Hyponatremia Constipation - chemo related Additional Diagnosis: Metastatic breast cancer DM HTN HLD Discharge Disposition: home health services Discharge Instructions General Discharge Information Code Status: Full Code Patient's Diet: regular diet Patient's Activity: as tolerated Follow-Up Instructions/Appts: please follow up with your oncologist Dr. Ruth This sunday. Please inform oncologist about the admission and discontinuation of the medication Please follow up with your PCP in a week Please hydrate well Medications at Discharge Discharge Medications: Stop taking the following medications: Ribociclib Succinate/Letrozole (Kisqali Femara 600 MG Co-Pack) 600 MG/DAY (200 MG X 3)-2.5 MG TABLET ORAL DAILY Letrozole (Femara) 2.5 MG TABLET ORAL DAILY Continue taking these medications: Ondansetron HCl (Ondansetron HCl) 8 MG TABLET 2 Tablet ORAL DAILY as needed for N/V Cholecalciferol (Vitamin D3) 1,000 UNIT TABLET 1 Tablet ORAL DAILY Glipizide/Metformin HCl (Glipizide-Metformin 5-500 MG) 5 MG-500 MG TABLET 0.5 Tablet ORAL TWICE DAILY Nut.tx.gluc.intoler,Lac-Fr,Soy (Glucerna) 237 ML LIQUID 1 Unit ORAL DAILY Levothyroxine Sodium (Levothyroxine Sodium) 25 MCG TABLET 1 Tablet ORAL DAILY Simvastatin (Simvastatin*) 20 MG TABLET 1 Tablet ORAL Every night Cyanocobalamin (Vitamin B-12) (Vitamin B-12) 50 MCG TABLET 1 Tablet ORAL DAILY Losartan Potassium (Cozaar) 25 MG TABLET 1 Tablet ORAL DAILY Copies To: Papito Kaye APRN, MD Review Statement Documenting Attending: Elizabeth DREW,Leonie Elizabeth
== END 2017-11-25 13:30 | disposition home health service (06) | DRG 426 ==
LOC: ERH 20:40 → 2NB 23:53 → ERHI 23:53 → ENRESERV 11-24 00:32 → CANRESERV 11-24 00:32 → ENRESERV 11-24 01:34 → 2NB 11-24 01:35 → ENPENDDIS 11-25 12:04 → 2NB 11-25 13:30
PROVIDERS: Internal Medicine; Physician Assistant
DX: E87.1 Hypo-osmolality and hyponatremia (principal); K59.03 Drug induced constipation; T45.1X5A Adverse effect of antineoplastic and immunosuppressive drugs, initial encounter; I10 Essential (primary) hypertension; E78.5 Hyperlipidemia, unspecified; E03.9 Hypothyroidism, unspecified; E11.9 Type 2 diabetes mellitus without complications; C78.7 Secondary malignant neoplasm of liver and intrahepatic bile duct; C78.00 Secondary malignant neoplasm of unspecified lung; Z85.3 Personal history of malignant neoplasm of breast; Z92.3 Personal history of irradiation; Z92.21 Personal history of antineoplastic chemotherapy; R10.32 Left lower quadrant pain; E86.0 Dehydration
CPT/HCPCS: 2NBSP; 84133; 84300; ERO; 36415; 71046; 74177; 81001; 82436; 82570; 93005; 93010; 96374; 96375; 97110-GO; 97116-GO; 97161-GP; J1644; J2405; J3101